=== PATIENT | female | born 1970 | race Caucasian/White ===

== ENCOUNTER 2024-04-05 21:58 | Emergency (ER) | payer OTHER ==
--- OUTSIDE RECORDS SUMMARY | 2024-04-05 22:01 | XMS REPORT | Continuity of Care Document ---
Author Name Unknown Address [address] [facility] [address] [place] [address] [facility] thconnect Address [address] [facility] [address] [place] [address] Care Team Providers Care Boiler Maker Name Role Phone Amber Nguyen Attending Clinician Unavailable Physician, No Primary or Family Admitting Clinic tonia Unavailable Payers Payer Name Policy Type Policy Number Effective Date Expirati on Date Source Allergies, Adverse Reactions, Alerts Allergy Name Allergy Type Status Severity Reaction(s) Onset Date Inactive Date Treating Clinician Comments Source oxytetra cycline HCl DA Active MA RASH 07-07 00:00: 00 [facility] oxytetra cycline DA Active MA RASH 07-07 00:00: 00 [facility] Encounters Start Date/Time End Date/Time Encounter Type Admission Type Attending Clinicians Care Facility Care Department Encounter ID Source 2021-09-02 08:41:27 Outpatient [facility] [id number] [facility] 2023-08-03 14:53:00 2023-08-04 13:03:00 Emergency EM Amber Nguyen HCAKW MICHELL [id number] [facility] Results Test Description Test Time Test Comments Results Result Co mments Source [id number] 18:15:00* Test Item Value Reference Range Interpretation Comme nts SALICYLATE (test code = KATHLEEN) < 1.0 mg/dL Negative <2.0 mg/dLTherapeutic Range <20 mg/dL LIVER FUNCTION [id number] 16:33:00* Test Item Value Reference Range Interpretation Comme nts TOTAL PROTEIN (test code = PROT) 7.8 g/dL 6.3-8.2 N "A positive bias may occur for patients taking Eltrombopag(a bone marrow stimulant used to treat thrombocytopenia andaplastic anemia)." ALBUMIN (test code = ALB) 4.7 g/dL 3.5-5.0 N BILIRUBIN TOTAL (test code = BILT) 0.7 mg/dL 0.2-1.3 N "A positive b ias may occur for patients taking Eltrombopag(a bone marrow stimulant used to treat thrombocytopenia andaplastic anemia)." BILIRUBIN CONJUGATED (test code = BILCON) 0 mg/dL 0-0.3 N "A positive bias may occur for patients taking Eltrombopag(a bone marrow stimulant used to treat thrombocytopenia andaplastic anemia)." CONJUGATED BILIRUBIN IS THE REPLACEMENT ASSAY FOR DIRECTBILIRUBIN. BILIRUBIN UNCONJUGATED (test code = BILUNC) 0.7 mg/dL 0-1.1 N SGOT/AST (test code = AST) 27 U/L 15-46 N SGPT/ALT (test code = ALT) 34 U/L 0-34 N ALKALINE PHOSPHATASE (test code = ALKP) 82 U/L 38-126 N [id number] 16:33:00* Test Item Value Reference Range Interpretation Comme nts ALCOHOL (test code = ALC) < 10 mg/dL <10 ~~~~~~~~~~~~~~~~ ~~~~~~ ~~~~~~~~~~~~~~~~~~~~~~ ~~~~~~ RESULTS ARE TO BE USED FOR MEDICAL PURPOSES ONLY.FOR LEGAL PURPOSES THE SPECIMEN MUST BE COLLECTED BY A CHAINOF CUSTODY. LEGAL TESTING IS NOT PERFORMED BY THIS FACILITY. ~~~~~~~~~~~~~~~~~~~~~~ ~~~~~~~~~~~~~~~~~~~~~~ ~~~~~~ BASIC METABOLIC [id number] 16:33:00* Test Item Value Reference Range Interpretation Comme nts SODIUM (test code = NA) 140 mmol/L 137-145 N POTASSIUM (test code = K) 3.3 mmol/L 3.4-5.0 L CHLORIDE (test code = CL) 107 mmol/L 98-107 N CARBON DIOXIDE (test code = CO2) 21 mmol/L 22-30 L ANION GAP (test code = GAP) 15 mmol/L 10-20 N GLUCOSE (test code = GLU) 158 mg/dL 74-106 H BLOOD UREA NITROGEN (test code = BUN) 5 mg/dL 7-17 L GLOMERULAR FILTRATION RATE (test code = GFR) 103 mL/min The Glomerular Filtration Rate is a calculated parameterbased on serum Creatinine, patient age and sex. GFR valuesless than 60 mL/min/1.73 square meters are indicative ofChronic Kidney Disease. Values less than 15 mL/min/1.73square meters indicate Kidney failure. The calculation forGFR is based on the CKD-EPI (2020) calculation. This formulais race indifferent and is the recommended formula for GFRby the National Kidney Foundation for Adults.The GFR will not calculate if the sex is unknown or if thepatient's age is <18 years. CREATININE (test code = CREAT) 0.7 mg/dL 0.5-1.0 N CALCIUM (test code = CA) 9.4 mg/dL 8.4-10.2 N INDEX HEMOLYSIS (test code = HEMINDEX) 18 Index/DL 0-100 N DRUGS OF ABUSE [id number] 16:27:00* Test Item Value Reference Range Interpretation Comme nts UR COCAINE (test code = COCAU) NEGATIVE NEGATIVE CUTOFF >/= 300 N G/ML UR THC CANABINOIDS QL SQN (test code = CANU) NEGATIVE NEGATIVE CUTOFF >/ = 20 NG/ML UR AMPHETAMINE QL SQN (test code = AMPHU) NEGATIVE NEGATIVE CUTOFF >/= 5 00 NG/ML UR BARBITURATE QUAL (test code = BARBQLU) NEGATIVE NEGATIVE CUTOFF >/= 200 NG/ML UR BENZODIAZEPINE (test code = BENZU) NEGATIVE NEGATIVE CUTOFF >/= 200 N G/ML UR OPIATES QUAL (test code = OPIAQLU) NEGATIVE NEGATIVE CUTOFF >/= 300 N G/ML UR PHENCYCLIDINE (PCP) (test code = PHENCU) NEGATIVE NEGATIVE CUTOFF >/= 25 NG/ML A Positive drug screen result provides only a "PreliminaryPositive" test result.If a confirmation of positive result is necessary, a morespecific confirmatory test must be ordered by the physician. Drug screens are performed for medical (i.e. treatment)purposes only. Unconfirmed screening results must not beused for non-medical purposes (e.g employment testing). URINALYSIS [id number] 16:15:00* Test Item Value Reference Range Interpretation Comme nts UA COLOR (test code = COLU) YELLOW YELLOW UA APPEARANCE (test code = APPU) CLEAR CLEAR UA GLUCOSE DIPSTICK (test code = DGLUU) NEGATIVE MG/DL NEGATIVE UA BILIRUBIN DIPSTICK (test code = BILU) NEGATIVE NEGATIVE UA KETONE DIPSTICK (test code = KETU) NEGATIVE MG/DL NEGATIVE UA SPECIFIC GRAVITY (test code = SGU) 1.015 1.000-1.030 UA BLOOD DIPSTICK (test code = MONROE) NEGATIVE NEGATIVE UA PH DIPSTICK (test code = SAL) 7.5 5.0-8.0 UA PROTEIN DIPSTICK (test code = PROU) NEGATIVE MG/DL NEGATIVE UA UROBILINOGEN DIPSTICK (test code = URO) 1.0 EU/dL <=1.0 UA NITRITE DIPSTICK (test code = DALLIN) NEGATIVE NEGATIVE UA LEUKOCYTE ESTERASE DIPSTICK (test code = LEUU) NEGATIVE NEGATIVE UA WBC (test code = WBCU) 0-3 /HPF See_Comment [Automated message] The system which generated this result transmitted reference range: <4-5. The reference range was not used to interpret this result as normal/abnormal. UA RBC (test code = RBCU) 0-3 /HPF See_Comment [Automated message] The system which generated this result transmitted reference range: <4-5. The reference range was not used to interpret this result as normal/abnormal. UA BACTERIA (test code = BACU) None /HPF None-Rare UA SQUAMOUS CELLS (test code = SQU) 0-5 (RARE) /HPF See_Comment [Automated message] The system which generated this result transmitted reference range: 0-5 (RARE). The reference range was not used to interpret this result as normal/abnormal. UA MUCUS (test code = MUCU) Rare /LPF See_Comment A [Automated message] The system which generated this result transmitted reference range: <Rare. The reference range was not used to interpret this result as normal/abnormal. CBC W/AUTO [id number] 16:08:00* Test Item Value Reference Range Interpretation Comme nts WHITE BLOOD CELL (test code = WBC) 9.1 x10 3/uL 5.0-12.0 N RED BLOOD CELL (test code = RBC) 5.26 x10 6/uL 4.20-5.40 N HEMOGLOBIN (test code = HGB) 13.8 g/dL 12.0-16.0 N HEMATOCRIT (test code = HCT) 42.6 % 36.0-46.0 N MEAN CELL VOLUME (test code = MCV) 81 fL 81-99 N MEAN CELL HGB (test code = MCH) 26.2 pg 27-31 L MEAN CELL HGB CONCENTRATION (test code = MCHC) 32.4 g/dL 33-37 L RED CELL DISTRIBUTION WIDTH (test code = RDW) 14.0 % 11.5-15.5 N PLATELET COUNT (test code = PLT) 258 x10 3/uL 130-400 N MEAN PLATELET VOLUME (test c ode = MPV) 11.6 fL 9.4-16.4 N NEUTROPHIL % (test code = NT%) 81.0 % 43-65 H IMMATURE GRANULOCYTE % (test code = IG%) 0.3 % 0.0-2.0 N LYMPHOCYTE % (test code = LY%) 13.7 % 20.5-45.5 L MONOCYTE % (test code = MO%) 4.5 % 5.5-11.7 L EOSINOPHIL % (test code = EO%) 0.1 % 0.9-2.9 L BASOPHIL % (test code = BA%) 0.4 % 0.2-1.0 N NUCLEATED RBC % (test code = NRBC%) 0.0 % 0-1.0 N NEUTROPHIL # (test code = NT#) 7.34 x10 3/uL 2.2-4.8 H IMMATURE GRANULOCYTE # (test code = IG#) 0.03 x10 3/uL 0-0.03 N LYMPHOCYTE # (test code = LY#) 1.24 x10 3/uL 1.3-2.9 L MONOCYTE # (test code = MO#) 0.41 x10 3/uL 0.3-0.8 N EOSINOPHIL # (test code = EO#) 0.01 x10 3/uL 0.0-0.2 N BASOPHIL # (test code = BA#) 0.04 x10 3/uL 0.0-0.1 N Notes Date/Time Note Provider Source 2023-08-03 16:57:00 [id number] [facility] [id number] [place], [place] [address]. [address] [place] [address] PATIENT NAME: MARIELA MAYORGA ADMIT DATE: 08/03/23 ACCOUNT NO: [id number] ROOM NO: AGE: 53 REPORT TYPE: ELECTROCARDIOGRAM SEX: F ADMITTING PHYSICIAN: ATTENDING PHYSICIAN: Order: [id number] Test Reason : Test Date/Time Stamp: Sat Aug 03 2023 16:57:28 Blood Pressure : / mmHG Vent. Rate : 095 BPM Atrial Rate : 095 BPM P-R Int : 170 ms QRS Dur : 088 ms QT Int : 410 ms P-R-T Axes : 089 -48 086 degrees QTc Int : 515 ms Normal sinus rhythm Pulmonary disease pattern Left anterior fascicular block Nonspecific ST abnormality Prolonged QT Abnormal ECG Confirmed by BLAS ARNETT ([id number]) on 08/05/2023 4:03:12 PM Referred By: Amber Nguyen Confirmed by:BLAS ARNETT at 1603 PATIENT NAME: MARIELA MAYORGA [facility] 2023-08-03 16:04:00 [facility] ([facility]) EMERGENCY PROVIDER REPORT REPORT#:[id number] REPORT STATUS: Signed DATE:08/03/23 TIME: 1604 PATIENT: MARIELA MAYORGA UNIT #: [id number] ROOM/BED: AGE: 53 SEX: F PCP PHYS: No Primary or Family Physician SERVICE AUTHOR: Anita Villegas DO R3 * ALL edits or amendments must be made on the electronic/computer document * NellySylviaAnita 08/03/23 1604: HPI-General Illness Free Text HPI Notes Free Text HPI Notes Patient is 53-year-old female history of depression anxiety here brought in today for increasing paranoia and suicidal ideations. She is prescribed trazodone for sleep and has been taking a couple extra doses every night for a week. Her father 2 days ago. She attempted to check her self and to [facility] and they sent her here for clearance. Denies somatic complaints at this time. Denies chest pain or palpitations. No shortness of breath. Denies syncope. PE General appearance: no acute distress, well-appearing, mental status normal Head/Eyes: atraumatic, normocephalic, PERRL, EOMI L pupil: reactivity R pupil: reactivity ENT: atraumatic, no malocclusion, mucous membranes moist Neck: atraumatic, full range of motion, non-tender Cardiovascular: regular rate rhythm, no murmurs appreciated, pulses equal bilat, pulses all extremities, Respiratory/chest: aerating well, atraumatic chest wall, lungs clear to auscultation, symmetric expansion, no distress, no rales or wheezing Abdomen: non-distended, soft, non-tender, no guarding, no rebound Back/Spine: Back: atraumatic, inspection NL, non-tender Pelvis: atraumatic, pelvis stable Extremities: pedal pulses intact, moving extremities spontaneously. Neuro/MACHINE FOLDER: alert, oriented X 3, follows commands Psych: Endorses suicidal ideation with no specific plan, endorses self-harm behavior by taking extra medication nightly, denies homicidal ideation. Endorses increased paranoia with no audiovisual hallucinations. General Initial Greet Date/Time 08/03/23 1374 Presentation Chief Complaint paranoid, si Review of Systems Review of Systems Constitutional Denies: Fatigue, Fever. Psychiatric Reports: Anxiety, Insomnia, Stress, Suicidal ideation. Past Medical History - Adult Stated Complaint FROM [facility]-POSSIBLE OVERDOSE ON MEDS, MED CLEARANCE Allergies Coded Allergies: oxytetracycline (From TERRAMYCIN) (Mild, RASH 07/07/11) oxytetracycline HCl (From TERRAMYCIN) (Mild, RASH 07/07/11) Home Medications Reported Medications HYDROcodone/Ibuprofen (Vicoprofen 200/7.5 Tablet) 1 TAB PO Q4H Amoxicillin Trihydrate (Amoxil) 500 MG PO Q6H Smoking status for patients 13 years old or older: Current every day smoker Physical Exam Vital Signs Review of Vital Signs Reviewed Re-Evaluation MDM Free Text MDM Notes Additional Text 53-year-old female presented to the emergency department with increasing paranoia and suicidal ideation. Patient has been taking extra doses of her trazodone to try to sleep and restarted on citalopram with varying dosages from 20 to 40 mg intermittently over the last week Patient's comorbidities with acute exacerbation added to the high complexity of care. History obtained from patient and patient's over the phone for collateral to further corroborate history. [External chart review was completed consisting of prior discharges, clinic notes that are available.] Independent interpretation of studies were completed by me acetaminophen salicylate and alcohol are negative. Chemistry is largely unremarkable aside from mild hypokalemia Attempted discussions with pending psychiatric evaluation. Other diagnostic testing and social determinants of health patient's father recently causing significant extra stress in her life that affect the patient care were also part of the patient's care plan. Decision regarding hospitalization was discussed along with risks, benefits and alternative options. Patient verbalized understanding and is agreeable to the plan of holding in the ER pending at mental health evaluation. The medical decision making includes independent review of any ordered imaging and EKGs and are in agreement with radiology interpretation unless documented otherwise. Individual labs and/or microbiologic data along with urine studies ordered and resulted at time of dictation have been interpreted by me and do not appear to contribute to an emergency diagnosis unless as mentioned above. Outside records including the most recent discharge summary, if available, have been reviewed. Consultants including hospitalists involved in the case as ordered/documented in the EMR agree with ED plan unless as documented above. ED Course Medication(s) Ordered Medication(s) Ordered: Central Nervous System Agents Sig/Carlitos Start time Last Medication Dose Route Stop Time Status Admin Aripiprazole 15 MG DAILY 08/04 0900 AC 08/04 PO 11/01 0901 0919 Droperidol 5 MG X1ED STA 08/04 0021 DC 08/04 IM 08/04 002 0027 Acetaminophen 650 MG X1ED STA 08/03 1951 DC 08/03 PO 08/03 Electrolytic, Caloric, And Josie Sig/Carlitos Start time Last Medication Dose Route Stop Time Status Admin Potassium Chloride 40 MEQ X1ED STA 08/03 1934 DC 08/03 PO 08/03 Miscellaneous Therapeutic Agen Sig/Carlitos Start time Last Medication Dose Route Stop Time Status Admin Melatonin 5 MG BEDTIME 08/03 1999 AC 08/03 PO 10/31 Patient Discharge Departure Clinical Impression Clinical Impression Primary Impression: Suicidal ideation Disposition Decision Transfer )( Request Time 2008 )( Request Date 08/03/23 Amber Nguyen 08/03/23 1934: Physical Exam Vital Signs Vital Signs First Documented: Result Date Time Pulse Ox 96 08/03 1457 B/P 176/99 08/03 1457 B/P Mean 124.7 08/03 145 Temp 36.9 08/03 145 Pulse 113 08/03 1457 Resp 18 08/03 1457 Last Documented: Result Date Time Pulse Ox 96 08/04 0922 B/P 140/79 08/04 09 B/P Mean 99.2 08/04 921 Temp 36.9 08/04 0922 Pulse 94 08/04 0922 Resp 18 08/03 1457 Interpretation Diagnostics Lab Results Interpretation Results Laboratory Tests 08/03/23 1536: [Embedded Image Not Available] Laboratory Tests: 08/03 08/03 08/03 1536 1536 1536 Chemistry Sodium (137 - 145 mmol/L) 140 Potassium (3.4 - 5.0 mmol/L) 3.3 L Chloride (98 - 107 mmol/L) 107 Carbon Dioxide (22 - 30 mmol/L) 21 L Anion Gap (10 - 20 mmol/L) 15 BUN (7 - 17 mg/dL) 5 L Creatinine (0.5 - 1.0 mg/dL) 0.7 Glomerular Filtr Rate (mL/min) 103 Glucose (74 - 106 mg/dL) 158 H Calcium (8.4 - 10.2 mg/dL) 9.4 Total Bilirubin (0.2 - 1.3 mg/dL) 0.7 Conjugated Bilirubin (0 - 0.3 mg/dL) 0 Unconjugated Bilirubin (0 - 1.1 mg/dL) 0.7 AST (15 - 46 U/L) 27 ALT (0 - 34 U/L) 34 Total Alk Phosphatase (38 - 126 U/L) 82 Total Protein (6.3 - 8.2 g/dL) 7.8 Albumin (3.5 - 5.0 g/dL) 4.7 Specimen Hemolysis (0 - 100 Index/DL) 18 Hematology WBC (5.0 - 12.0 x10 3/uL) 9.1 RBC (4.20 - 5.40 x10 6/uL) 5.26 Hgb (12.0 - 16.0 g/dL) 13.8 Hct (36.0 - 46.0 %) 42.6 MCV (81 - 99 fL) 81 MCH (27 - 31 pg) 26.2 L MCHC (33 - 37 g/dL) 32.4 L RDW (11.5 - 15.5 %) 14.0 Plt Count (130 - 400 x10 3/uL) 258 MPV (9.4 - 16.4 fL) 11.6 Neut % (Auto) (43 - 65 %) 81.0 H Lymph % (Auto) (20.5 - 45.5 %) 13.7 L [place] % (Auto) (5.5 - 11.7 %) 4.5 L Eos % (Auto) (0.9 - 2.9 %) 0.1 L Baso % (Auto) (0.2 - 1.0 %) 0.4 Neut # (Auto) (2.2 - 4.8 x10 3/uL) 7.34 H Lymph # (Auto) (1.3 - 2.9 x10 3/uL) 1.24 L [place] # (Auto) (0.3 - 0.8 x10 3/uL) 0.41 Eos # (Auto) (0.0 - 0.2 x10 3/uL) 0.01 Baso # (Auto) (0.0 - 0.1 x10 3/uL) 0.04 Immature Gran % (0.0 - 2.0 %) 0.3 Nucleated RBC % (0 - 1.0 %) 0.0 Toxicology Salicylates (mg/dL) < 1.0 Urine Opiates Screen (NEGATIVE) NEGATIVE Acetaminophen (10 - 30 ug/mL) <10 L Ur Barbiturates, Qual (NEGATIVE) NEGATIVE Ur Phencyclidine Scrn (NEGATIVE) NEGATIVE Ur Amphetamines Screen (NEGATIVE) NEGATIVE U Benzodiazepines Scrn (NEGATIVE) NEGATIVE Urine Cocaine Screen (NEGATIVE) NEGATIVE Urine Cannabinoids (NEGATIVE) NEGATIVE Ethyl Alcohol (<10 mg/dL) < 10 Urines Urine Color (YELLOW) YELLOW Urine Appearance (CLEAR) CLEAR Urine pH (5.0 - 8.0) 7.5 Ur Specific [place] (1.000 - 1.030) 1.015 Urine Protein (NEGATIVE MG/DL) NEGATIVE Urine Glucose (UA) (NEGATIVE MG/DL) NEGATIVE Urine Ketones (NEGATIVE MG/DL) NEGATIVE Urine Blood (NEGATIVE) NEGATIVE Urine Nitrite (NEGATIVE) NEGATIVE Urine Bilirubin (NEGATIVE) NEGATIVE Urine Urobilinogen (<=1.0 EU/dL) 1.0 Ur Leukocyte Esterase (NEGATIVE) NEGATIVE Urine RBC (<4 - 5 /HPF) 0-3 Urine WBC (<4 - 5 /HPF) 0-3 Ur Squamous Epith Cells (0 - 5 (RARE) /HPF) 0-5 (RARE) Urine Bacteria (None - Rare /HPF) None Urine Mucus (<Rare /LPF) Rare H Patient Discharge Departure Vital Signs/Condition Vital Signs First Documented: Result Date Time Pulse Ox 96 08/03 1457 B/P 176/99 08/03 145 B/P Mean 124.7 08/03 1456 Temp 36.9 08/03 145 Pulse 113 08/03 145 Resp 18 08/03 1456 Last Documented: Result Date Time Pulse Ox 96 08/04 921 B/P 140/79 08/04 921 B/P Mean 99.2 08/04 921 Temp 36.9 08/04 921 Pulse 94 08/04 921 Resp 18 08/03 1456 All vital signs available at the time of this entry have been reviewed. Supervising Physician Note Resident Saw Pt This patient was seen by a resident. I have personally seen the patient, performed the critical or martinez portions of the service, and participated in the management of the patient. I have reviewed and agree with the resident's note, and I have reviewed all labs, ECGs, and imaging studies or reports. I agree with this resident's findings, exam and plan. Patient presenting for ingestion. Patient admits to taking trazadone as an SI attempt after her father passed yesterday. Labs s/f hypoK to 3.3 - repleted. Tox labs negative. Toxicology consulted and aware. at 1304 at 1443 RPT #:[id number] END OF REPORT [facility] 2023-08-03 15:23:00 [facility] ([facility]) EMERGENCY PROVIDER REPORT REPORT#:[id number] REPORT STATUS: Signed DATE:08/03/23 TIME: 1523 PATIENT: MARIELA MAYORGA UNIT #: [id number] ROOM/BED: AGE: 53 SEX: F PCP PHYS: SERVICE DT: AUTHOR: Noreen Chavez * ALL edits or amendments must be made on the electronic/computer document * Provider in Triage - Adult Provider in Triage Initial Greet Date/Time 08/03/23 1454 Greet Note I have greeted and performed a focused rapid initial assessment of this patient. A comprehensive ED assessment and evaluation of the patient, analysis of all test results, and completion of the medical decision-making process will be conducted by additional ED providers. Free Text PIT Notes Free Text PIT Notes 53-year-old female presents ER for suicidal ideations. Patient complains of nausea and dizziness. Per the family, the patient has had worsening depression over the past week. The patient states that her father recently , was a hospice patient. She states that she also has multiple other stressors going on. Denies any previous suicidal attempts. Patient states that she takes Levaquin and trazodone however she cannot remember how many she has taken over the past week. Denies any allergies Denies alcohol, syndrome, cigarette use Notice: Parts of this note were created using [employer] speech recognition dictation software. All things were made to correct any errors at the time of dictation, however there may be some errors present in the rubberizing mechanic that were inadvertently overlooked during the dictation. PMH-Provider in Triage Stated Complaint FROM [facility]-POSSIBLE OVERDOSE ON MEDS, MED CLEARANCE Allergies Coded Allergies: oxytetracycline (From TERRAMYCIN) (Mild, RASH 07/07/11) oxytetracycline HCl (From TERRAMYCIN) (Mild, RASH 07/07/11) Home Medications Reported Medications HYDROcodone/Ibuprofen (Vicoprofen 200/7.5 Tablet) 1 TAB PO Q4H Amoxicillin Trihydrate (Amoxil) 500 MG PO Q6H Smoking status: Smoking status for patients 13 years old or older: Current every day smoker at 1526 RPT #:[id number] END OF REPORT [facility]
[2024-04-05] MEDS ORDERED: NA CHLORIDE 0.9% 1,000 ML ONE (22:34)
--- NOTE | 2024-04-05 23:47 | EDPHYS ---
Physician Documentation [facility] Name: Rosalie Hilton Age: 54 yrs Sex: Female : 1970 Arrival Date: 04/05/2024 Time: 21:58 Bed 8 Private MD: ED Physician Juan Oconnor HPI: 04/05 22:22 This 54 yrs old Female presents to ER via Unassigned with complaints of PT is having rn reaction for an Edible. 22:22 Patient had 1000 mg THC gummy approximately an hour and a half ago. Initially was rn having trouble moving her extremities and speaking and is slowly wearing off. Feels better but not back to normal. Patient feels anxious and tremulous. Patient was fine prior to eating edible.. Onset: The symptoms/episode began/occurred 1.5 hour(s) ago. Severity of symptoms: At their worst the symptoms were moderate in the emergency department the symptoms have improved. The patient has not experienced similar symptoms in the past. 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 - Infectious Disease History:: Denies. - Family history:: not pertinent. - Social history:: Smoking status: Patient denies any tobacco usage or history of. - Hospitalizations: : No recent hospitalization is reported. ROS: 22:22 Constitutional: Negative for fever, chills, and weight loss, Cardiovascular: Positive rn for palpitations Respiratory: Negative for shortness of breath, cough, wheezing, and pleuritic chest pain, Neuro: Negative for headache, weakness, numbness, tingling, and seizure, Exam: 22:22 Constitutional: This is a well developed, well nourished patient who is awake, slow to rn respond, able to get into bed on her own Eyes: Pupils dilated, reactive and equal ENT: Dry mucous membranes Cardiovascular: Tachycardic, regular Respiratory: No increased work of breathing, no retractions or nasal flaring. Skin: Warm, dry Neuro: Awake and alert, GCS 15, oriented to person, place, time, and situation. Cranial nerves II-XII grossly intact. Motor strength 4/5 in all extremities. Sensory grossly intact. 22:27 ECG was reviewed by the Attending Physician. rn Vital Signs: 22:22 BP 164 / 94; Pulse 127; Resp 12; Temp 97.4; Pulse Ox 98% ; Weight 74.39 kg; Height 5 vc1 ft. 4 in. ; Pain 0/10; 22:38 BP 157 / 85; Pulse 114; Resp 20; Temp 97.4; Pulse Ox 94% on R/A; Pain 0/10; bm8 23:45 BP 140 / 78; Pulse 96; Resp 17; Temp 97.4; Pulse Ox 95% ; Pain 0/10; bm8 23:46 BP 140 / 78; Pulse 94; rn 04/06 00:07 BP 138 / 83; Pulse 96; Resp 18; Temp 97.5; Pulse Ox 95% ; Pain 0/10; bm8 04/05 22:22 Body Mass Index 28.15 (74.39 kg, 162.56 cm) vc1 04/05 22:22 Pain Scale: Adult vc1 22:38 Pain Scale: Adult bm8 23:45 Pain Scale: Adult bm8 04/06 00:07 Pain Scale: Adult bm8 [place] Coma Score: 04/05 22:38 Eye Response: spontaneous(4). Motor Response: obeys commands(6). Verbal Response: bm8 oriented(5). Total: 15. 23:45 Eye Response: spontaneous(4). Motor Response: obeys commands(6). Verbal Response: bm8 oriented(5). Total: 15. 04/06 00:07 Eye Response: spontaneous(4). Motor Response: obeys commands(6). Verbal Response: bm8 oriented(5). Total: 15. MDM: 04/05 22:05 Medical Screening Exam initiated rn 23:45 Differential Diagnosis Patient feels much better, heart rate down to the 90s after cadmium burner bolus. Much more alert. No longer tremulous. Will discharge home with return precautions.. Data reviewed: vital signs, nurses notes, and as a result, I will discharge patient. Counseling: I had a detailed discussion with the patient and/or guardian regarding the historical points, exam findings, and any diagnostic results supporting the discharge/admit diagnosis, the need for outpatient follow up, to return to the emergency department if symptoms worsen or persist or if there are any questions or concerns that arise at home. Special discussion: I discussed with the patient/guardian in detail that at this point there is no indication for admission to the hospital. It is understood, however, that if the symptoms persist or worsen the patient needs to return immediately for re-evaluation. 04/05 22: Order name: EKG; Complete Time: rn 04/05 22:05 Order name: Cardiac monitoring; Complete Time: rn 04/05 22:05 Order name: O2 Sat Monitoring; Complete Time: rn 04/05 22: Order name: IV Start; Complete Time: rn 04/05 22: Order name: EKG - Nurse/Tech; Complete Time: rn EC:27 Rate is 129 beats/min. Rhythm is regular. QRS [place] is Normal. CA interval is normal. rn QRS interval is normal. QT interval is normal. No Q waves. T waves are Normal. No ST changes noted. Clinical impression: Sinus tachycardia. Interpreted by me. Reviewed by me. Administered Medications: :38 Drug: NS 0.9% IV 1000 ml IV at 1000 ml once; to be given as a bolus over 60 minutes bm8 Route: IV; Rate: 1000 ml; Site: right hand; 23:46 Follow up: Response: No adverse reaction; IV Status: Completed infusion; IV Intake: bm8 1000ml Disposition Summary: 04/05/24 23:46 Discharge Ordered Notes: Location: Home rn Problem: new rn Symptoms: have improved rn Condition: Stable rn Diagnosis - Adverse effect of THC edible rn Followup: rn - With: Private Physician - When: As needed - Reason: Recheck today's complaints, Re-evaluation by your physician Forms: - Medication Reconciliation Form rn - Antibiotic rn nicu - Prescription Opioid Use rn - Patient Portal Instructions rn - Leadership Thank You Letter rn Signatures: Juan Oconnor MD MD rn Calcote, Vanessa, RN RN vc1 Xavier Malave RN RN bm8
--- NOTE | 2024-04-05 23:47 | ER ---
Nurse's Notes [facility] Name: Rosalie Hilton Age: 54 yrs Sex: Female : 1970 Arrival Date: 04/05/2024 Time: 21:58 Bed 8 Private MD: Diagnosis: Adverse effect of THC edible Presentation: 04/05 22:22 Chief complaint: Spouse and/or significant other states: She took a 1000mg edible gummy vc1 to try to sleep and started having trouble talking and leg wouldn't stop shaking. Coronavirus screen: Client denies travel out of the [place] in the last 14 days. At this time, the client does not indicate any symptoms associated with coronavirus-19. Ebola Screen: Patient negative for fever greater than or equal to 101.5 degrees Fahrenheit, and additional compatible Ebola Virus Disease symptoms Patient denies exposure to infectious person. Patient denies travel to an Ebola-affected area in the 21 days before illness onset. No symptoms or risks identified at this time. Initial Sepsis Screen: Does the patient meet any 2 criteria? No. Patient's initial sepsis screen is negative. Does the patient have a suspected source of infection? No. Patient's initial sepsis screen is negative. Risk Assessment: Do you want to hurt yourself or someone else? Patient reports no desire to harm self or others. Onset of symptoms was April 05, 2024 at 22:00. 22:22 Method Of Arrival: Wheelchair vc1 22:22 Acuity: MARCELA 4 vc1 Triage Assessment: 22:26 General: Appears in no apparent distress. uncomfortable, well groomed, well developed, vc1 well nourished, Behavior is cooperative, anxious. Pain: Denies pain. EENT: Reports "mouth is dry". Neuro: Level of Consciousness is awake, alert, obeys commands, Oriented to person, place, time, situation, Appropriate for age. Cardiovascular: Capillary refill < 3 seconds Patient's skin is warm and dry. Rhythm is sinus tachycardia. Respiratory: Airway is patent Respiratory effort is even, unlabored, Respiratory pattern is regular, symmetrical. GI: No deficits noted. No signs and/or symptoms were reported involving the gastrointestinal system. : No deficits noted. No signs and/or symptoms were reported regarding the genitourinary system. Derm: Skin is intact, is healthy with good turgor, Skin is dry, Skin is normal, Skin temperature is warm. Musculoskeletal: Circulation, motion, and sensation intact. 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 - Infectious Disease History:: Denies. - Family history:: not pertinent. - Social history:: Smoking status: Patient denies any tobacco usage or history of. - Hospitalizations: : No recent hospitalization is reported. Screenin:25 [facility] ED Fall Risk Assessment (Adult) History of falling in the last 3 months, vc1 including since admission No falls in past 3 months (0 pts) Confusion or Disorientation No (0 pts) Intoxicated or Sedated Yes (3 pts) Impaired Gait Yes (1 pt) Mobility Assist Device Used No (0 pt) Altered Elimination No (0 pt) Score/Fall Risk Level 3 or more points = High Risk Oriented to surroundings, Maintained a safe environment, Educated pt \\T\\ family on fall prevention, incl call for assistance when getting out of bed. Abuse screen: Denies threats or abuse. Nutritional screening: No deficits noted. Tuberculosis screening: No symptoms or risk factors identified. Assessment: 22:38 General: Appears in no apparent distress. comfortable, Behavior is cooperative, bm8 appropriate for age, anxious, restless. Pain: Denies pain. Neuro: Level of Consciousness is awake, alert, obeys commands, Oriented to person, place, time, situation, Appropriate for age Bsa/Aml Compliance Officer are equal bilaterally Moves all extremities. Full function Gait is steady, Speech is normal, Facial symmetry appears normal, Pupils are Pupil Size: 6mm tremors on right side of body. Cardiovascular: Denies chest pain, lightheadedness, shortness of breath, Heart tones S1 S2 present Capillary refill < 3 seconds in bilateral fingers Patient's skin is warm and dry. Rhythm is sinus tachycardia. Respiratory: Airway is patent Trachea midline Respiratory effort is even, unlabored, Respiratory pattern is regular, symmetrical, Breath sounds are clear bilaterally. GI: No deficits noted. No signs and/or symptoms were reported involving the gastrointestinal system. : No signs and/or symptoms were reported regarding the genitourinary system. EENT: No signs and/or symptoms were reported regarding the EENT system. Derm: No signs and/or symptoms reported regarding the dermatologic system. Musculoskeletal: No signs and/or symptoms reported regarding the musculoskeletal system. 23:45 Reassessment: Patient appears in no apparent distress at this time. Patient and/or bm8 family updated on plan of care and expected duration. Pain level reassessed. Patient is alert, oriented x 3, equal unlabored respirations, skin warm/dry/pink. Patient states feeling better. Patient states symptoms have improved. Vital Signs: 22:22 BP 164 / 94; Pulse 127; Resp 12; Temp 97.4; Pulse Ox 98% ; Weight 74.39 kg; Height 5 vc1 ft. 4 in. ; Pain 0/10; 22:38 BP 157 / 85; Pulse 114; Resp 20; Temp 97.4; Pulse Ox 94% on R/A; Pain 0/10; bm8 23:45 BP 140 / 78; Pulse 96; Resp 17; Temp 97.4; Pulse Ox 95% ; Pain 0/10; bm8 23:46 BP 140 / 78; Pulse 94; rn 04/06 00:07 BP 138 / 83; Pulse 96; Resp 18; Temp 97.5; Pulse Ox 95% ; Pain 0/10; bm8 04/05 22:22 Body Mass Index 28.15 (74.39 kg, 162.56 cm) vc1 04/05 22:22 Pain Scale: Adult vc1 22:38 Pain Scale: Adult bm8 23:45 Pain Scale: Adult bm8 04/06 00:07 Pain Scale: Adult bm8 [place] Coma Score: 04/05 22:38 Eye Response: spontaneous(4). Motor Response: obeys commands(6). Verbal Response: bm8 oriented(5). Total: 15. 23:45 Eye Response: spontaneous(4). Motor Response: obeys commands(6). Verbal Response: bm8 oriented(5). Total: 15. 04/06 00:07 Eye Response: spontaneous(4). Motor Response: obeys commands(6). Verbal Response: bm8 oriented(5). Total: 15. ED Course: 04/05 22:04 Patient arrived in ED. gm2 22:05 Juan Oconnor MD is Attending Physician. rn 22:24 Triage completed. vc1 22:25 Arm band placed on right wrist. vc1 22:29 Xavier Malave, RN is Primary Nurse. bm8 22:29 Patient has correct armband on for positive identification. Bed in low position. Call vc1 light in reach. Adult w/ patient. electronic device monitor on. Pulse ox on. NIBP on. 22:38 Door closed. Noise minimized. Warm blanket given. Pillow given. Verbal reassurance bm8 given. Head of bed elevated. 22:38 No provider procedures requiring assistance completed. EKG done, by ED staff, reviewed bm8 by Juan Oconnor MD. Inserted saline lock: 20 gauge in right hand, using aseptic technique. Flushed with 10 mL NS. Patient maintains SpO2 saturation greater than 95% on room air. 23:45 Provided Education on: post er care. bm8 04/06 00:07 IV discontinued, intact, bleeding controlled, No redness/swelling at site. Pressure bm8 dressing applied. Administered Medications: 04/05 22:38 Drug: NS 0.9% IV 1000 ml IV at 1000 ml once; to be given as a bolus over 60 minutes bm8 Route: IV; Rate: 1000 ml; Site: right hand; 23:46 Follow up: Response: No adverse reaction; IV Status: Completed infusion; IV Intake: bm8 1000ml Medication: 22:38 VIS not applicable for this client. bm8 Intake: 23:46 IV: 1000ml; Total: 1000ml. bm8 Outcome: 23:46 Discharge ordered by . rn 04/06 00:07 Discharged to home ambulatory, bm8 Condition: stable Discharge instructions given to patient, family, Instructed on discharge instructions, follow up and referral plans. safety practices, Demonstrated understanding of instructions, follow-up care, medications, 00:09 Patient left the ED. bm8 Signatures: Juan Oconnor MD MD rn Calcote, Vanessa, RN RN 1 Kaykay Eubanks 2 Xavier Malave, YOKO RN bm8
[2024-04-06 06:36] VITALS: O2SAT 95
[2024-04-06 06:38] VITALS: BP 138/83; TEMP 97.5
--- NOTE | 2024-04-08 14:59 | EKG ---
Test Date: 2024-04-05 Test Time: 22:23:57 Commissioned Police Officer: CAMRYN MEASUREMENT RESULTS: Intervals: Rate: 129 VA: 144 QRSD: 78 QT: 316 QTc: 462 [place]: P: 70 VA: 144 QRS: -48 T: 69 INTERPRETIVE STATEMENTS: Sinus tachycardia with fusion complexes Left anterior fascicular block Nonspecific ST and T wave abnormality Abnormal ECG No previous ECG available for comparison Electronically Signed On 04-08-24 14:48:49 CDT by Vladislav Stevens
== END 2024-04-06 00:09 | disposition home or self-care (01) ==
LOC: ER 21:58
DX: R00.2 Palpitations (principal); T40.715A Adverse effect of cannabis, initial encounter
CPT/HCPCS: 93005; 96360; 99285; J7030